=== PATIENT | male | born 1965 | race Caucasian/White ===

== ENCOUNTER 2023-10-13 07:17 | Outpatient (CLI) | payer OTHER | END 2023-10-13 07:18 | disposition home or self-care (01) | LOC: CSHCT 07:17 | PROVIDERS: ATTEND Internal Medicine Hematology & Oncology | DX: C20 Malignant neoplasm of rectum (principal); R16.1 Splenomegaly, not elsewhere classified; N28.1 Cyst of kidney, acquired | CPT/HCPCS: 74160; 82565 ==